=== PATIENT | female | born 1985 | race Caucasian/White ===

== ENCOUNTER 2023-09-27 09:35 | Inpatient (IN) | payer OTHER ==
[~2023-09-27] VITALS: Ht 182.9 cm; Wt 106.2 kg
[2023-09-27 14:30] VITALS: BP 138/82; TEMP 97.9; O2SAT 99
[2023-09-27] MEDS ORDERED: BISACODYL 10MG SUPP PR PRN (14:45)
[2023-09-27 15:48] LABS: BASO % 0.3 % (0.0-1.0); EOS # 0.5 10^3/uL (0.0-0.5); EOS % 5.3 % (0.0-3.0); HEMOGLOBIN 12.2 g/dl (12.0-15.5); LYMPH # 1.8 10^3/uL (1.5-5.0); LYMPH % 18.1 % (24.0-44.0); MEAN CORPUSCULAR HEMOGLOBIN 30.8 pg (27.0-33.0); MEAN CORPUSCULAR VOLUME 93.4 fl (80.0-96.0); MONO # 0.9 10^3/uL (0.0-0.8); MONO % 9.1 % (2.0-8.0); NEUTROPHILS # 6.5 10^3/uL (1.5-8.5); NEUTROPHILS % 66.8 % (36.0-66.0); PLATELET COUNT, AUTOMATED 294 10^3/uL (150-450); RED BLOOD COUNT 3.96 10^6/uL (4.00-5.40); WHITE BLOOD COUNT 9.7 10^3/uL (4.0-10.0)
[2023-09-27 16:14] LABS: ALBUMIN 2.8 G/DL (3.2-5.2); ALKALINE PHOSPHATASE 218 U/L (46-116); ALT/SGPT 55 U/L (7.0-40); AST/SGOT 48 U/L (<34); BILIRUBIN,TOTAL 1.2 MG/DL (0.3-1.2); BLOOD UREA NITROGEN 7 MG/DL (9-23); CALCIUM LEVEL 8.5 MG/DL (8.5-10.1); CARBON DIOXIDE LEVEL 26 MMOL/L (20-31); CHLORIDE LEVEL 103 MMOL/L (98-107); GLOMERULAR FILTRATION RATE > 60.0 (>60); GLUCOSE, FASTING 82 MG/DL (60-100); POTASSIUM SERUM 4.4 MMOL/L (3.5-5.1); SODIUM LEVEL 139 MMOL/L (136-145); TOTAL PROTEIN 5.6 G/DL (5.7-8.2)
[2023-09-27] MEDS ORDERED: ACET-897 PO (16:14)
[2023-09-27] MEDS ORDERED: SPIR-10 PO (16:14)
[2023-09-27] MEDS ORDERED: POLY17PO18 PO (16:14)
[2023-09-27] MEDS ORDERED: LISI40TA4 PO (16:14)
[2023-09-27] MEDS ORDERED: METO25TA4 PO (16:14)
[2023-09-27] MEDS ORDERED: NEUR400C PO (16:14)
[2023-09-27] MEDS ORDERED: BACIOIN5 TOP (16:14)
[2023-09-27] MEDS ORDERED: DOCU100C17 PO (16:14)
[2023-09-27] MEDS ORDERED: SENN8.6T28 PO (16:14)
[2023-09-27] MEDS ORDERED: MORP1TAB20 PO (16:14)
[2023-09-27] MEDS ORDERED: ENOX60IN3 SC (16:14)
[2023-09-27] MEDS ORDERED: PANT-23 PO (16:14)
[2023-09-27] MEDS ORDERED: NEUR300C PO (16:14)
[2023-09-27] MEDS ORDERED: METH-1164 PO (16:14)
[2023-09-27] MEDS ORDERED: HOME MED LIST COMPLETE! XX SCH (16:25)
[2023-09-27] MEDS: methocarbamoL 500 MG TAB PO SCH ×2 (17:15→20:20)
[2023-09-27] MEDS: ACETAMINOPHEN 500 MG TAB PO SCH ×2 (17:15→20:21)
[2023-09-27] MEDS: HYDROmorphone 4MG TABLET PO PRN ×2 (17:16→22:24)
[2023-09-27] MEDS: metFORMIN (GLUCOPHAGE) 500MG TAB PO SCH (17:16)
[2023-09-27] MEDS: ONDANSETRON 4MG TAB PO SCH (18:00)
[2023-09-27 20:00] VITALS: BP 138/74; TEMP 98.7; O2SAT 95
[2023-09-27] MEDS: PANTOPRAZOLE 40MG TAB (PROTONIX) PO SCH (20:20)
[2023-09-27] MEDS: GABAPENTIN 300 MG CAP PO SCH (20:20)
[2023-09-27] MEDS: METOPROLOL TART 25 MG TABLET PO SCH (20:21)
[2023-09-27] MEDS: SENNA 8.6 MG TAB (SENOKOT) PO SCH (20:22)
[2023-09-27] MEDS: POTASSIUM CHLORIDE 10MEQ SR TABLET PO SCH (20:22)
[2023-09-27] MEDS: DOCUSATE SODIUM 100MG CAPSULE PO SCH (20:22)
[2023-09-27] MEDS: ENOXAPARIN 60MG/0.6ML SYRINGE (J1650 PER 10MG) SC SCH (20:23)
[2023-09-27] MEDS: BACITRACIN OINTMENT 30GM TUBE TOP SCH (21:00)
[2023-09-27] MEDS: MORPHINE 30 MG SA TAB PO SCH (22:28)
[2023-09-28] MEDS: HYDROmorphone 4MG TABLET PO PRN ×4 (04:43→20:06)
[2023-09-28] MEDS: ONDANSETRON 4MG TAB PO SCH ×5 (05:02→23:59)
[2023-09-28 06:00] VITALS: BP 141/65; TEMP 98.1; O2SAT 98
[2023-09-28 08:10] LABS: ALBUMIN 2.8 G/DL (3.2-5.2); ALKALINE PHOSPHATASE 235 U/L (46-116); ALT/SGPT 52 U/L (7.0-40); AST/SGOT 34 U/L (<34); BILIRUBIN,TOTAL 1.4 MG/DL (0.3-1.2); BLOOD UREA NITROGEN 6 MG/DL (9-23); CARBON DIOXIDE LEVEL 25 MMOL/L (20-31); CHLORIDE LEVEL 106 MMOL/L (98-107); CREATININE FOR GFR 0.42 MG/DL (0.55-1.30); GLOMERULAR FILTRATION RATE > 60.0 (>60); GLUCOSE, FASTING 95 MG/DL (60-100); POTASSIUM SERUM 4.3 MMOL/L (3.5-5.1); SODIUM LEVEL 141 MMOL/L (136-145); TOTAL PROTEIN 5.9 G/DL (5.7-8.2)
[2023-09-28] MEDS: lisinopriL 40MG TAB PO SCH (09:30)
[2023-09-28] MEDS: DOCUSATE SODIUM 100MG CAPSULE PO SCH ×2 (09:30→20:50)
[2023-09-28] MEDS: ACETAMINOPHEN 500 MG TAB PO SCH ×3 (09:31→20:07)
[2023-09-28] MEDS: CALCIUM/VITAMIN D 500 MG TAB PO SCH (09:31)
[2023-09-28] MEDS: FLUoxetine 20MG CAP PO SCH (09:31)
[2023-09-28] MEDS: methocarbamoL 500 MG TAB PO SCH ×4 (09:31→20:07)
[2023-09-28] MEDS: GABAPENTIN 300 MG CAP PO SCH ×2 (09:31→20:06)
[2023-09-28] MEDS: ENOXAPARIN 60MG/0.6ML SYRINGE (J1650 PER 10MG) SC SCH ×2 (09:32→20:05)
[2023-09-28] MEDS: LIDOCAINE 5% (LIDODERM) PATCH TD SCH (09:32)
[2023-09-28] MEDS: PANTOPRAZOLE 40MG TAB (PROTONIX) PO SCH ×2 (09:38→20:06)
[2023-09-28] MEDS: METOPROLOL TART 25 MG TABLET PO SCH ×2 (09:38→20:05)
[2023-09-28] MEDS: MORPHINE 30 MG SA TAB PO SCH ×2 (09:38→20:06)
[2023-09-28] MEDS: PRENATAL VITAMINS CHEWABLE TABLET PO SCH (09:38)
[2023-09-28] MEDS: POTASSIUM CHLORIDE 10MEQ SR TABLET PO SCH ×2 (09:38→20:05)
[2023-09-28] MEDS: metFORMIN (GLUCOPHAGE) 500MG TAB PO SCH ×2 (09:39→17:01)
[2023-09-28] MEDS: SPIRONOLACTONE 25 MG TAB PO SCH (09:39)
[2023-09-28] MEDS: BACITRACIN OINTMENT 30GM TUBE TOP SCH ×2 (09:53→20:08)
[2023-09-28] MEDS: MIRALAX *UNIT DOSE* 17GM PACKET PO SCH (09:53)
[2023-09-28 14:00] VITALS: BP_SYST 113; BP_DIAS 4; BP_DIAS 64; TEMP 97.8; O2SAT 97
[2023-09-28 19:57] VITALS: BP 131/73; TEMP 98.7; O2SAT 95
[2023-09-28] MEDS: SENNA 8.6 MG TAB (SENOKOT) PO SCH (20:50)
[2023-09-29] MEDS: HYDROmorphone 4MG TABLET PO PRN ×5 (00:10→23:10)
[2023-09-29] MEDS: ONDANSETRON 4MG TAB PO SCH ×4 (05:04→23:10)
[2023-09-29 05:41] VITALS: BP 128/71; TEMP 98; O2SAT 97
[2023-09-29] MEDS: GABAPENTIN 300 MG CAP PO SCH ×2 (08:25→20:09)
[2023-09-29] MEDS: POTASSIUM CHLORIDE 10MEQ SR TABLET PO SCH ×2 (08:25→20:09)
[2023-09-29] MEDS: metFORMIN (GLUCOPHAGE) 500MG TAB PO SCH ×2 (08:26→17:19)
[2023-09-29] MEDS: methocarbamoL 500 MG TAB PO SCH ×4 (08:26→20:08)
[2023-09-29] MEDS: PRENATAL VITAMINS CHEWABLE TABLET PO SCH (08:26)
[2023-09-29] MEDS: MORPHINE 30 MG SA TAB PO SCH ×2 (08:26→20:09)
[2023-09-29] MEDS: lisinopriL 40MG TAB PO SCH (08:26)
[2023-09-29] MEDS: CALCIUM/VITAMIN D 500 MG TAB PO SCH (08:26)
[2023-09-29] MEDS: METOPROLOL TART 25 MG TABLET PO SCH ×2 (08:27→20:09)
[2023-09-29] MEDS: ACETAMINOPHEN 500 MG TAB PO SCH ×3 (08:27→20:10)
[2023-09-29] MEDS: FLUoxetine 20MG CAP PO SCH (08:27)
[2023-09-29] MEDS: SPIRONOLACTONE 25 MG TAB PO SCH (08:27)
[2023-09-29] MEDS: PANTOPRAZOLE 40MG TAB (PROTONIX) PO SCH ×2 (08:27→20:09)
[2023-09-29] MEDS: ENOXAPARIN 60MG/0.6ML SYRINGE (J1650 PER 10MG) SC SCH ×2 (08:28→20:10)
[2023-09-29] MEDS: LIDOCAINE 5% (LIDODERM) PATCH TD SCH (08:28)
[2023-09-29] MEDS: MIRALAX *UNIT DOSE* 17GM PACKET PO SCH (08:29)
[2023-09-29] MEDS: BACITRACIN OINTMENT 30GM TUBE TOP SCH ×2 (08:29→20:10)
[2023-09-29] MEDS: DOCUSATE SODIUM 100MG CAPSULE PO SCH ×2 (08:29→20:12)
[2023-09-29 14:00] VITALS: BP 119/72; TEMP 98.1; O2SAT 96
[2023-09-29 19:34] VITALS: BP 127/78; TEMP 97.7; O2SAT 97
[2023-09-29] MEDS: SENNA 8.6 MG TAB (SENOKOT) PO SCH (20:12)
[2023-09-30] MEDS: ONDANSETRON 4MG TAB PO SCH ×3 (05:07→17:15)
[2023-09-30 05:24] VITALS: BP 115/56; TEMP 97.6; O2SAT 95
[2023-09-30] MEDS: HYDROmorphone 4MG TABLET PO PRN (05:30)
[2023-09-30 07:06] LABS: HEMATOCRIT 33.1 % (36.0-47.0); HEMOGLOBIN 10.9 g/dl (12.0-15.5); MEAN CORPUSCULAR HEMOGLOBIN 31.1 pg (27.0-33.0); MEAN CORPUSCULAR HGB CONC 32.9 g/dl (32.0-36.5); MEAN CORPUSCULAR VOLUME 94.6 fl (80.0-96.0); PLATELET COUNT, AUTOMATED 367 10^3/uL (150-450); WHITE BLOOD COUNT 8.5 10^3/uL (4.0-10.0)
[2023-09-30] MEDS: LIDOCAINE 5% (LIDODERM) PATCH TD SCH (07:42)
[2023-09-30] MEDS: PANTOPRAZOLE 40MG TAB (PROTONIX) PO SCH ×2 (07:43→19:54)
[2023-09-30] MEDS: METOPROLOL TART 25 MG TABLET PO SCH ×2 (07:43→19:54)
[2023-09-30] MEDS: SPIRONOLACTONE 25 MG TAB PO SCH (07:43)
[2023-09-30] MEDS: lisinopriL 40MG TAB PO SCH (07:43)
[2023-09-30] MEDS: DOCUSATE SODIUM 100MG CAPSULE PO SCH ×2 (07:44→19:52)
[2023-09-30] MEDS: POTASSIUM CHLORIDE 10MEQ SR TABLET PO SCH ×2 (07:44→20:25)
[2023-09-30] MEDS: FLUoxetine 20MG CAP PO SCH (07:44)
[2023-09-30] MEDS: metFORMIN (GLUCOPHAGE) 500MG TAB PO SCH ×2 (07:44→17:15)
[2023-09-30] MEDS: MIRALAX *UNIT DOSE* 17GM PACKET PO SCH (07:44)
[2023-09-30] MEDS: CALCIUM/VITAMIN D 500 MG TAB PO SCH (07:45)
[2023-09-30] MEDS: methocarbamoL 500 MG TAB PO SCH ×4 (07:45→19:54)
[2023-09-30] MEDS: MORPHINE 30 MG SA TAB PO SCH ×2 (07:45→19:53)
[2023-09-30] MEDS: GABAPENTIN 300 MG CAP PO SCH ×2 (07:46→19:53)
[2023-09-30] MEDS: PRENATAL VITAMINS CHEWABLE TABLET PO SCH (07:46)
[2023-09-30] MEDS: ACETAMINOPHEN 500 MG TAB PO SCH ×3 (07:46→19:54)
[2023-09-30] MEDS: ENOXAPARIN 60MG/0.6ML SYRINGE (J1650 PER 10MG) SC SCH ×2 (07:47→19:52)
[2023-09-30] MEDS: BACITRACIN OINTMENT 30GM TUBE TOP SCH ×2 (07:47→19:55)
[2023-09-30 11:54] LABS: PERCENT SATURATION 14.6 % (13.2-45.0)
[2023-09-30 11:56] LABS: FOLATE 23.74 NG/ML (>5.4)
[2023-09-30] MEDS: HYDROmorphone 2 MG TAB PO PRN (12:08)
[2023-09-30] MEDS: MAGIC MOUTHWASH SUSPENSION BTL SS PRN (12:08)
[2023-09-30 14:00] VITALS: BP 120/70; TEMP 98.6; O2SAT 97
[2023-09-30] MEDS: SENNA 8.6 MG TAB (SENOKOT) PO SCH (19:54)
[2023-09-30 20:00] VITALS: BP 131/77; TEMP 97.7; O2SAT 98
[2023-10-01] MEDS: HYDROmorphone 2 MG TAB PO PRN ×4 (01:07→15:36)
[2023-10-01] MEDS: ONDANSETRON 4MG TAB PO SCH ×3 (05:24→11:58)
[2023-10-01 06:00] VITALS: BP 117/70; TEMP 97.5; O2SAT 96
[2023-10-01] MEDS: CALCIUM/VITAMIN D 500 MG TAB PO SCH (07:29)
[2023-10-01 07:30] VITALS: BP 117/70
[2023-10-01] MEDS: metFORMIN (GLUCOPHAGE) 500MG TAB PO SCH (07:30)
[2023-10-01] MEDS: METOPROLOL TART 25 MG TABLET PO SCH (07:30)
[2023-10-01] MEDS: lisinopriL 40MG TAB PO SCH (07:30)
[2023-10-01] MEDS: POTASSIUM CHLORIDE 10MEQ SR TABLET PO SCH (07:30)
[2023-10-01] MEDS: GABAPENTIN 300 MG CAP PO SCH (07:30)
[2023-10-01] MEDS: SPIRONOLACTONE 25 MG TAB PO SCH (07:31)
[2023-10-01] MEDS: ACETAMINOPHEN 500 MG TAB PO SCH (07:31)
[2023-10-01] MEDS: DOCUSATE SODIUM 100MG CAPSULE PO SCH (07:31)
[2023-10-01] MEDS: MORPHINE 30 MG SA TAB PO SCH (07:31)
[2023-10-01] MEDS: methocarbamoL 500 MG TAB PO SCH ×2 (07:31→12:11)
[2023-10-01] MEDS: PANTOPRAZOLE 40MG TAB (PROTONIX) PO SCH (07:31)
[2023-10-01] MEDS: FLUoxetine 20MG CAP PO SCH (07:32)
[2023-10-01] MEDS: PRENATAL VITAMINS CHEWABLE TABLET PO SCH (07:32)
[2023-10-01] MEDS: ENOXAPARIN 60MG/0.6ML SYRINGE (J1650 PER 10MG) SC SCH (07:32)
[2023-10-01] MEDS: MAGIC MOUTHWASH SUSPENSION BTL SS PRN (07:33)
[2023-10-01] MEDS: LIDOCAINE 5% (LIDODERM) PATCH TD SCH (07:33)
[2023-10-01] MEDS: BACITRACIN OINTMENT 30GM TUBE TOP SCH (07:34)
[2023-10-01] MEDS: MIRALAX *UNIT DOSE* 17GM PACKET PO SCH (08:37)
[2023-10-01] MEDS ORDERED: MORP1TAB20 PO ×2 (14:22→15:17)
[2023-10-01] MEDS ORDERED: METH-1164 PO (14:22)
[2023-10-01] MEDS ORDERED: LOVE0.4I2 SC (14:22)
[2023-10-01] MEDS ORDERED: NEUR300C PO (14:22)
[2023-10-01] MEDS ORDERED: FLUO20CA22 PO (14:22)
[2023-10-01] MEDS ORDERED: PANT-23 PO (14:22)
[2023-10-01] MEDS ORDERED: DILA2TAB6 PO ×2 (14:22→15:17)
[2023-10-01] MEDS ORDERED: NEUR600T PO (15:17)
[2023-10-01] MEDS ORDERED: PROT1TAB2 PO (15:17)
[2023-10-01] MEDS ORDERED: [UNRECOGNIZED DRUG - CODE] PO (15:17)
[2023-10-01] MEDS ORDERED: LOVE1INJ SC (15:17)
== END 2023-10-01 15:45 | disposition home or self-care (01) | DRG 862 ==
LOC: M PM&R 14:30
PROVIDERS: ADMIT Student in an Organized Health Care Education/Training Program; ATTEND Student in an Organized Health Care Education/Training Program
DX: S32.19XD Other fracture of sacrum, subsequent encounter for fracture with routine healing (principal); I69.354 Hemiplegia and hemiparesis following cerebral infarction affecting left non-dominant side; I10 Essential (primary) hypertension; I65.21 Occlusion and stenosis of right carotid artery; S32.591D Other specified fracture of right pubis, subsequent encounter for fracture with routine healing; S32.048D Other fracture of fourth lumbar vertebra, subsequent encounter for fracture with routine healing; S32.512D Fracture of superior rim of left pubis, subsequent encounter for fracture with routine healing; S22.41XD Multiple fractures of ribs, right side, subsequent encounter for fracture with routine healing; S32.058D Other fracture of fifth lumbar vertebra, subsequent encounter for fracture with routine healing; G89.11 Acute pain due to trauma; F17.210 Nicotine dependence, cigarettes, uncomplicated; K21.9 Gastro-esophageal reflux disease without esophagitis; E66.9 Obesity, unspecified; E28.2 Polycystic ovarian syndrome; M19.90 Unspecified osteoarthritis, unspecified site; I69.398 Other sequelae of cerebral infarction; J44.9 Chronic obstructive pulmonary disease, unspecified; G47.30 Sleep apnea, unspecified; F32.A Depression, unspecified; Z96.651 Presence of right artificial knee joint; Z98.84 Bariatric surgery status; Z79.891 Long term (current) use of opiate analgesic; Z79.899 Other long term (current) drug therapy; Z68.31 Body mass index [BMI] 31.0-31.9, adult